=== PATIENT | female | born 1970 | race Caucasian/White ===

== ENCOUNTER → 2017-07-01 | Outpatient (CLI) | payer MEDICARE, OTHER ==
--- NOTE | 2017-07-02 09:06 | MM ---
Reason for exam: screening (asymptomatic). Last mammogram was performed 1 year ago. History: Patient is nulliparous. Physical Findings: A clinical breast exam by your physician is recommended on an annual basis and results should be correlated with mammographic findings. MG 3D Screening Mammo W/Cad Bilateral CC, MLO, and XCCM view(s) were taken. Prior study comparison: June 27, 2016, bilateral MG 3d screening mammo w/cad. March 08, 2015, mammogram, performed at [facility]. There are scattered fibroglandular densities. There is no discrete abnormality. No significant changes when compared with prior studies. ASSESSMENT: Negative, BI-RAD 1 RECOMMENDATION: Routine screening mammogram of both breasts in 1 year.
== END | disposition home or self-care (01) ==
LOC: RADMAMWWP 13:52
PROVIDERS: ATTEND Family Medicine
DX: Z12.31 Encounter for screening mammogram for malignant neoplasm of breast (principal)
CPT/HCPCS: 77063; G0202

== ENCOUNTER → 2018-07-30 | Outpatient (CLI) | payer MEDICARE, OTHER ==
[2018-07-30 08:27] LABS: Basophils % (A) 0 %; Eosinophils # (A) 0.3 k/uL (0-0.7); Eosinophils % (A) 3 %; HCT 42.2 % (34.0-46.0); HGB 13.5 gm/dL (11.4-16.0); Lymphocytes # (A) 3.1 k/uL (1.0-4.8); Lymphocytes % (A) 33 %; MCH 27.5 pg (25.0-35.0); MCHC 32.1 g/dL (31.0-37.0); MCV 85.7 fL (80.0-100.0); Mean Platelet Volume 6.9; Monocytes # (A) 0.4 k/uL (0-1.0); Monocytes % (A) 4 %; Neutrophils # (A) 5.4 k/uL (1.3-7.7); Neutrophils % (A) 58 %; Platelet Count 280 k/uL (150-450); RBC 4.92 m/uL (3.80-5.40); WBC 9.4 k/uL (3.8-10.6)
== END | disposition home or self-care (01) ==
LOC: LABWHC1 08:15
PROVIDERS: ATTEND Family Medicine
DX: D69.6 Thrombocytopenia, unspecified (principal)
CPT/HCPCS: 36415; 85025

== ENCOUNTER → 2019-08-25 | Outpatient (CLI) | payer MEDICARE, OTHER ==
[2019-08-25 14:46] VITALS: BP 95/68; PULSE 96; TEMP 98.4; BMI 49.5
[2019-08-25 16:17] LABS: HCT 43.8 % (34.0-46.0); HGB 13.7 gm/dL (11.4-16.0); MCH 27.6 pg (25.0-35.0); MCHC 31.4 g/dL (31.0-37.0); MCV 87.8 fL (80.0-100.0); Mean Platelet Volume 9.3; Platelet Count 223 k/uL (150-450); RBC 4.99 m/uL (3.80-5.40); RDW 13.3 % (11.5-15.5); WBC 10.7 k/uL (3.8-10.6)
--- NOTE | 2019-08-25 21:10 | P.BASOAP ---
Subjective Progress Note Date: 08/25/19 Principal diagnosis: Morbid obesity Patient returns for evaluation. She is one year postop to the day. Over 130 pounds weight loss total. 10 pounds since last visit. She is due for annual labs. Does admit to occasional episodes of right upper quadrant pain. No workup. She takes antacids intermittently. She is moving to [place] in March. Objective - Vital Signs Vital signs: Vital Signs Temp 98.4 F 08/25/19 14:43 Pulse 96 08/25/19 14:43 Resp BP 95/68 08/25/19 14:43 Pulse Ox Intake & Output 08/25/19 08/25/19 08/26/19 06:59 18:59 06:59 Weight 118.841 kg - Exam Abdomen: Soft, nontender, nondistended - Labs CBC & Chem 7: 08/25/19 15:48 Labs: Abnormal Lab Results - Last 24 Hours (Table) 08/25/19 Range/Units 15:48 WBC 10.7 H (3.8-10.6) k/uL Assessment/Plan (1) Morbid obesity Narrative/Plan: Patient overall doing well. Continue dietary and exercise regimen. Recheck 1 year labs. Follow up 3 months. Plan: Date: 08/25/19 Initial Weight: Initial BMI: Current Weight: 118.841 kg Current BMI: 49.5 Type of Surgery: Total Volume in Band: Previous Volume: Volume Removed: Volume Added: Band Size:
[2019-08-25 23:58] LABS: African American GFR (CKD) 100.3 (60.0-200.0); Albumin 4.4 g/dL (3.80-4.90); Albumin/Globulin Ratio 2.44 (1.60-3.17); Anion Gap 6.6 mmol/L (4.00-12.00); BUN/Creat Ratio 16.25 Ratio (12.00-20.00); Calcium 9.4 mg/dL (8.7-10.3); Carbon Dioxide 29.4 mmol/L (21.6-31.8); Globulin 1.8 g/dL (1.6-3.3); Non-African American GFR(CKD) 86.6 (60.0-200.0); Total Bilirubin 0.3 mg/dL (0.3-1.2); Total Protein 6.2 g/dL (6.2-8.2)
[2019-08-26 00:09] LABS: Folate, Serum 5.1 ng/mL
== END | disposition home or self-care (01) ==
LOC: BARWHC3 13:43
PROVIDERS: ATTEND Surgery
DX: E66.01 Morbid (severe) obesity due to excess calories (principal); Z68.42 Body mass index [BMI] 45.0-49.9, adult; K90.89 Other intestinal malabsorption; E55.9 Vitamin D deficiency, unspecified
CPT/HCPCS: 84425; 80053; 82607; 82746; 83540; 85027; 82306; 36415; G0463; 99201

== ENCOUNTER → 2020-03-01 | Outpatient (CLI) | payer MEDICARE, OTHER ==
[2020-03-01 13:37] VITALS: BP 134/76; PULSE 85; TEMP 98.1; BMI 52.5
--- NOTE | 2020-03-01 15:49 | P.BASOAP ---
Subjective Progress Note Date: 03/01/20 Principal diagnosis: Morbid obesity Patient doing well. She was last seen in August of last year. She had her 1 year labs done at that time showing a low iron and a low vitamin D. Patient is now taking multivitamins with iron and remains on vitamin D. No abdominal pain at this time. Recently starting a new medication for her diabetes which is causing increased satiety. Complaining of some knee pain. Activity has been decreased. Takes occasional Tums but no prescription antiacids for reflux. She is moving to [place]. Objective - Vital Signs Vital signs: Vital Signs Temp 98.1 F 03/01/20 13:30 Pulse 85 03/01/20 13:30 Resp BP 134/76 03/01/20 13:30 Pulse Ox Intake & Output 02/29/20 03/01/20 03/01/20 18:59 06:59 18:59 Weight 126.099 kg - Exam Abdomen: Soft, nontender, nondistended Assessment/Plan (1) Morbid obesity Narrative/Plan: Patient overall doing well. Patient will be leaving shortly to [place]. She will be initiating with a primary care physician. She will have blood work performed at that time. Patient will contact me with any issues. Plan: Date: 03/01/20 Initial Weight: Initial BMI: Current Weight: 126.099 kg Current BMI: 52.5 Type of Surgery: Total Volume in Band: Previous Volume: Volume Removed: Volume Added: Band Size:
== END | disposition home or self-care (01) ==
LOC: BARWHC3 12:59
PROVIDERS: ATTEND Surgery
DX: E66.01 Morbid (severe) obesity due to excess calories (principal); Z68.43 Body mass index [BMI] 50.0-59.9, adult; M25.569 Pain in unspecified knee
CPT/HCPCS: 99211